=== PATIENT | male | born 1955 | race Caucasian/White ===

== ENCOUNTER → 2017-09-13 | Outpatient (CLI) | payer BC ==
[~2017-09-13] MED LIST: ASA325 PO; NRC7.5T PO
--- NOTE | 2017-09-13 14:50 | Diagnostic Imaging Report ---
TECHNIQUE: Magnetic resonance imaging of the RIGHT humerus was performed WITHOUT injected contrast. Given the requested region of the exam, evaluation in the region of the shoulder and elbow are limited. HISTORY: Weakness COMPARISON: None available. FINDINGS: BONES: No acute fracture. No focal or infiltrative bone marrow replacing abnormality. Subchondral cystic changes and edema at the inferior aspect of the glenoid. JOINTS: Severe degenerative changes of the glenohumeral joint, including severe complex tearing of the inferior labrum with adjacent 1.3 cm paralabral cyst. The humeral head appears high riding with respect to the expected location adjacent to the glenoid. SOFT TISSUES: The long head of the biceps tendon is not visualized within the intertubercular groove. Regional fluid and a retracted tendon stump are visible at the level of the proximal humeral metaphysis. Mild fluid surrounding the biceps muscle. The rotator cuff cannot be well evaluated, but appears attenuated in the region of the supraspinatus and infraspinatus tendons. IMPRESSION: 1. Findings compatible with a proximal rupture and distal retraction of the long head of the biceps tendon. 2. Severe degenerative changes of the glenohumeral joint, including degenerative tearing of the inferior labrum with adjacent paralabral cyst. 3. Suspected high-grade tearing of the supraspinatus and infraspinatus tendons. If warranted, this can be further evaluated via a follow-up MRI of the shoulder without contrast. Signed by: Dr. Abdulkadir Steve D.O., M.M.M. on 09/13/2017 2:46 PM
== END ==
LOC: MRI 09:38
PROVIDERS: ATTEND Family Medicine
DX: M62.81 Muscle weakness (generalized) (principal)

== ENCOUNTER 2018-03-07 14:03 | Emergency (ER) | payer BC ==
[~2018-03-07] VITALS: Ht 170.2 cm; Wt 97.5 kg
[2018-03-07] MEDS ORDERED: LEVOTHYROXINE25 MCG PO (14:36)
[2018-03-07] MEDS ORDERED: XARELTO20 MG PO (14:36)
[2018-03-07 15:08] LABS: BASOPHILS # (AUTO) 0.1 (0.0-0.1); BASOPHILS % 0.9 % (0.0-1.0); EOSINOPHILS # (AUTO) 0.3 (0.0-0.4); EOSINOPHILS % 2.7 % (0.0-6.0); HEMATOCRIT 43.4 % (38.2-49.6); HEMOGLOBIN 14.8 g/dL (14.0-18.0); LYMPHOCYTES % 31.2 % (18.0-39.1); MEAN CORPUSCULAR HEMOGLOBIN 31.9 pg (28-32); MEAN CORPUSCULAR HGB CONC 34.1 g/dL (31-35); MEAN CORPUSCULAR VOLUME 93.5 fL (81-99); MONOCYTES # (AUTO) 0.8 (0.2-0.8); NEUTROPHILS # (AUTO) 5.4 (2.1-6.9); NEUTROPHILS % 56.9 % (38.7-80.0); PLATELET COUNT 267 x10e3/uL (140-360); RED BLOOD COUNT 4.64 x10e6/uL (4.3-5.7); RED CELL DISTRIBUTION WIDTH 12.8 % (11.7-14.4)
[2018-03-07 15:19] LABS: PROTHROMBIN TIME 14.1 seconds (11.9-14.5)
[2018-03-07 15:26] LABS: ALANINE AMINOTRANSFERASE 25 IU/L (0-55); ALBUMIN 3.8 g/dL (3.5-5.0); ALBUMIN/GLOBULIN RATIO 1.1 (0.8-2.0); ALKALINE PHOSPHATASE 47 IU/L (40-150); ANION GAP 14.7 mmol/L (8-16); BLOOD UREA NITROGEN 21 mg/dL (7-26); BUN/CREATININE RATIO 14 (6-25); CALCIUM 9.5 mg/dL (8.4-10.2); CARBON DIOXIDE 22 mmol/L (22-29); CHLORIDE 105 mmol/L (98-107); CREATINE KINASE 131 IU/L (30-200); CREATININE, SERUM 1.49 mg/dL (0.72-1.25); EST GLOMERULAR FILTRATION RATE 47 ML/MIN (60-); GLUCOSE 111 mg/dL (74-118); POTASSIUM 3.7 mmol/L (3.5-5.1); SODIUM 138 mmol/L (136-145)
[2018-03-07] MEDS ORDERED: SODIUM CHLORIDE 0.9% 1000ML 1,000 ML IV SCH ×2 (16:15→18:30)
[2018-03-07] MEDS ORDERED: SODIUM CHLORIDE 0.9% 100 ML 100 ML ONE (16:35)
[2018-03-07] MEDS ORDERED: IOPAMIDOL 370 MG/ML 200 ML INFUS..BTL INJ ONE (16:36)
--- NOTE | 2018-03-07 18:04 | Diagnostic Imaging Report ---
EXAMINATION: CT of the chest with contrast, PE protocol. TECHNIQUE: Spiral CT images of the chest were performed from the lung apices through the level of the adrenal glands after the IV administration of 80 cc of Isovue 370. Thin section reconstructions were obtained with special concentration on the pulmonary arteries. COMPARISON: CT chest 05/10/2017 CLINICAL HISTORY:Shortness of breath, weakness, dizziness DISCUSSION: Exam limited by suboptimal contrast bolus timing. Lungs: No filling defects are identified in the main, right or left pulmonary arteries to their segmental levels to suggest pulmonary embolism. No consolidation, masses or nodules. Subpleural calcified granuloma in the left upper lobe (series 3, image 38). Linear opacities in bilateral lower lobes likely represent subsegmental atelectasis or scarring (for example series 3, image 84). Airways: <The major airways are clear.> Pleura: <There is no evidence of pleural effusion or pneumothorax.> Heart and mediastinum: Thyroid is unremarkable. Heart size is normal. No pericardial effusion. Aorta is nonaneurysmal. Main pulmonary artery is normal in caliber, measuring 2.6 cm. Lymph nodes: No mediastinal, hilar or axillary adenopathy. Abdomen: <The visualized parts of the upper abdomen are unremarkable.> Bones and soft tissues: No aggressive lytic lesions. Multilevel degenerative disc changes in the thoracic spine. IMPRESSION: 1. No CT evidence of pulmonary embolism. 2. Bilateral lower lobe subsegmental atelectasis versus scarring. No consolidation, masses or nodules. Signed by: Dr. Tim Wayne M.D. on 03/07/2018 6:01 PM
--- NOTE | 2018-03-07 18:35 | Diagnostic Imaging Report ---
History: Dizziness Comparison studies: None Technique: Axial images were obtained from the skull base to the vertex. Coronal and sagittal reconstructions obtained from the axial data. Dose modulation, iterative reconstruction, and/or weight based adjustment of the mA/kV was utilized to reduce the radiation dose to as low as reasonably achievable. Findings: Scalp/skull: No abnormalities. No fractures, blastic or lytic lesions. Extra-axial spaces: No masses. No fluid collections. Brain sulci: Appropriate for age. Ventricles: Normal in size and configuration. No hydrocephalus. Parenchyma: No abnormal densities. No masses, hemorrhage, acute or chronic cortical vascular insults. Sellar/suprasellar region: No abnormalities Craniocervical junction: Patent foramen magnum. No Chiari one malformation. Incidental subtle atherosclerotic calcifications in the carotid siphons. IMPRESSION: No intracranial abnormalities. Signed by: Dr. Natanael Acosta M.D. on 03/07/2018 6:32 PM
--- OUTSIDE RECORDS SUMMARY | 2018-03-18 11:11 | XMS REPORT ---
Author Author [facility] Address Unknown Phone Unavailable Care Team Providers Care Assembler [place] Name Role Phone SUDHIRCarlton Unavailable Unavailable RYLEY FLAHERTY Unavailable Unavailable JOHNSON, SOUHEEMMA Unavailable Unavailable Problems This patient has no known problems. Allergies, Adverse Reactions, Alerts This patient has no known allergies or adverse reactions. Medications This patient has no known medications. Results Test Description Test Time Test Comments Text Results Atomic Results Result Comments CT BRAIN WO 2018-03-07 18:31:00 [facility] [address] [place] [address] Patient Name: MARSHAL JACQUES MR #: [id number] : 1955 Age/Sex: 62/M Req #: [id number] Adm Physician: Ordered by: ELIER VOSS METAL BONDING WORKER Report #: [id number] Location: ER Room/Bed: Procedure: [id number] CT/CT BRAIN WO Exam Date: 03/07/18 Exam Time: 1720 REPORT STATUS: Signed History: Dizziness Comparison studies: None Technique: Axial images were obtained from the skull base to the vertex. Coronal and sagittal reconstructions obtained from the axial data. Dose modulation, iterative reconstruction, and/or weight based adjustment of the mA/kV was utilized to reduce the radiation dose to as low as reasonably achievable. Findings: Scalp/skull: No abnormalities. No fractures, blastic or lytic lesions. Extra-axial spaces: No masses. No fluid collections. Brain sulci: Appropriate for age. Ventricles: Normal in size and configuration. No hydrocephalus. Parenchyma: No abnormal densities. No masses, hemorrhage, acute or chronic cortical vascular insults. Sellar/suprasellar region: No abnormalities Craniocervical junction: Patent foramen magnum. No Chiari one malformation. Incidental subtle atherosclerotic calcifications in the carotid siphons. IMPRESSION: No intracranial abnormalities. Signed by: Dr. Natanael Turner M.D. on 03/07/2018 6:32 PM Dictated By: NATANAEL TURNER MD, MD 31 Transcribed By: LÁZARO on 03/07/181831 COPY TO: ELIER VOSS NP CT CHEST W 2018-03-07 17:56:00 [place] [address] Patient Name: MARSHAL JACQUES MR #: [id number] : 1955 Age/Sex: 62/M Req #: [id number] Adm Physician: Ordered by: ELIER VOSS METAL BONDING WORKER Report #: [id number] Location: ER Room/Bed: Procedure: [id number] CT/CT CHEST W Exam Date: 03/07/18 Exam Time: 1720 REPORT STATUS: Signed EXAMINATION: CT of the chest with contrast, PE protocol. TECHNIQUE: Spiral CT images of the chest were performed from the lung apices through the level of the adrenal glands after the IV administration of 80 cc of Isovue 370. Thin section reconstructions were obtained with special concentration on the pulmonary arteries. COMPARISON: CT chest 05/10/2017 CLINICAL HISTORY:Shortness of breath, weakness, dizziness DISCUSSION: Exam limited by suboptimal contrast bolus timing. Lungs: No filling defects are identified in the main, right or left pulmonary arteries to their segmental levels to suggest pulmonary embolism. No consolidation, masses or nodules. Subpleural calcified granuloma in the left upper lobe (series 3, image 38). Linear opacities in bilateral lower lobes likely represent subsegmental atelectasis or scarring (for example series 3, image 84). Airways: <The major airways are clear.> Pleura: <There is no evidence of pleural effusion or pneumothorax.> Heart and mediastinum: Thyroid is unremarkable. Heart size is normal. No pericardial effusion. Aorta is nonaneurysmal. Main pulmonary artery is normal in caliber, measuring 2.6 cm. Lymph nodes: No medi astinal, hilar or axillary adenopathy. Abdomen: <The visualized parts of the upper abdomen are unremarkable.> Bones and soft tissues: No aggressive lytic lesions. Multilevel degenerative disc changes in the thoracic spine. IMPRESSION: 1. No CT evidence of pulmonary embolism. 2. Bilateral lower lobe subsegmental atelectasis versus scarring. No consolidation, masses or nodules. Signed by: Dr. Tim Bolaños M.D. on 03/07/2018 6:01 PM Dictated By: TIM BOLAÑOS MD 00 Transcribed By: LÁZARO on 03/07/181800 COPY TO: ELIER VOSS NP MRI HUMERUS RIGHT WO [place] [address] Patient Name: MARSHAL JACQUES MR #: [id number] : 1955 Age/Sex: 61/M Req #: [id number] Adm Physician: Ordered by: RYLEY FLAHERTY DO Report #: [id number] Location: MRI Room/Bed: Procedure: [id number] MRI/MRI HUMERUS RIGHT WO Exam Date: Exam Time: REPORT STATUS: Signed TECHNIQUE: Magnetic resonance imaging of the RIGHT humerus was performed WITHOUT injected contrast. Given the requested region of the exam, evaluation in the region of the shoulder and elbow are limited. HISTORY: Weakness COMPARISON: None available. FINDINGS: BONES: No acute fracture. No focal or infiltrative bone marrow replacing abnormality. Subchondral cystic changes and edema at the inferior aspect of the glenoid. JOINTS: Severe degenerative changes of the glenohumeral joint, including severe complex tearing of the inferior labrum with adjacent 1.3 cm paralabral cyst. The humeral head appears high riding with respect to the expected location adjacent to the glenoid. SOFT TISSUES: The long head of the biceps tendon is not visualized within the intertubercular groove. Regional fluid and a retracted tendon stump are visible at the level of the proximal humeral metaphysis. Mild fluid surrounding the biceps muscle. The rotator cuff cannot be well evaluated, but appears attenuated in the region of the supraspinatus and infraspinatus tendons. IMPRESSION: 1. Findings compatible with a proximal rupture and distal retraction of the long head of the biceps tendon. 2. Severe degenerative changes of the glenohumeral joint, including degenerative tearing of the inferior labrum with adjacent paralabral cyst. 3. Suspected high-grade tearing of the supraspinatus and infraspinatus tendons. If warranted, this can be further evaluated via a follow-up MRI of the shoulder without contrast. Signed by: Dr. Abdulkadir Razo D.O., M.M.M. on 09/13/2017 2:46 PM Dictated By: ABDULKADIR RAZO DO 1446 Transcribed By: LÁZARO on 09/13/17 1446 COPY TO: RYLEY FLAHERTY DO [facility] (PORTABLE) [place] [address] Patient Name: MARSHAL JACQUES MR #: [id number] : 1955 Age/Sex: 61/M Req #: [id number] Adm Physician: ES JOHNSON MD Ordered by: ADAM CRUZ MD Report #: [id number] Location: ICU Room/Bed: ICU 191-1 Procedure: [id number] DX/CHEST SINGLE (PORTABLE) Exam Date: Exam Time: REPORT STATUS: Signed EXAM: CHEST SINGLE (PORTABLE), AP 1 view DATE: 05/12/2017 5:00 AM Time stamp on exam: 0539 hours INDICATION: DVT lower extremity, PE COMPARISON: AP view of the chest May 11, 2017 FINDINGS: LINES/TUBES: None LUNGS: No consolidations or edema. PLEURA: No effusions or pneumothorax. HEART AND MEDIASTINUM: Normal size and contour. BONES AND SOFT TISSUES: No acute findings. IMPRESSION: No acute thoracic abnormality. Signed by: Dr. Fortino Willson M.D. on 05/12/2017 6:15 AM Dictated By: FORTINO WILLSON MD 4 Transcribed By: LÁZARO on 05/12/17614 COPY TO: ADAM CRUZ MD CHEST SINGLE (PORTABLE) [place] [address] Patient Name: MARSHAL JACQUES MR #: [id number] : 1955 Age/Sex: 61/M Req #: [id number] Adm Physician: ES JOHNSON MD Ordered by: JEFERSON KUHN MD Report #: [id number] Location: ICU Room/Bed: ICU 191- Procedure: [id number] DX/CHEST SINGLE (PORTABLE) Exam Date: 05/11/17 Exam Time: 1436 REPORT STATUS: Signed EXAMINATION: Chest, CHEST SINGLE (PORTABLE) INDICATION: Chest pain COMPARISON: None FINDINGS: LINES: None. Heart: Normal cardiac silhouette. Vascular: The pulmonary vasculature is within normal limits. Atherosclerotic calcifications of the aortic arch. Mediastinum: No mediastinal, hilar, or axillary mass or lymphadenopathy. Lungs: No parenchymal mass. No focal consolidation. Calcified granuloma in the left upper lobe. Pleura: No pleural effusion. No pneumothorax. Bones: No acute osseous abnormality. Degenerative changes of the thoracic spine. Soft tissues: Normal. Impression: No acute radiographic abnormality. Signed by: Dr. Lena Gunter M.D. on 05/11/2017 3:03 PM Dictated By: LENA GUNTER MD 1503 Transcribed By: LÁZARO on 05/11/17 1503 COPY TO: JEFERSON KUHN MD CT CHEST W [place] [address] Patient Name: MARSHAL JACQUES MR #: [id number] : 1955 Age/Sex: 61/M Req #: [id number] Adm Physician: ES JOHNSON MD Ordered by: ES JOHNSON MD Report #: [id number] Location: [facility] Room/Bed: [place] [address] Procedure: [id number] CT/CT CHEST W Exam Date: 05/10/17 Exam Time: 1215 REPORT STATUS: Signed EXAM: CT Chest WITH contrast (PE Protocol) INDICATION: COMPARISON: Chest CT dated 03/05/2017 TECHNIQUE: Chest was scanned utilizing a multidetector helical scanner from the lung apex through the level of the diaphragm after administration of IV contrast. Thin section reconstructions were obtained with special concentration on the pulmonary arteries. Coronal and sagittal reformations were obtained. Pulmonary embolism protocol was performed. IV CONTRAST: 100 mL of Isovue-370 COMPLICATIONS: None RADIATION DOSE: Total DLP: 563.24 mGy*cm Estimated effective dose: (DLP x 0.014 x size factor) mSv CTDIvol has been reviewed. It is below the limits set by the Radiation Protocol Committee (RPC). FINDINGS: LINES/ TUBES: None. LUNGS AND AIRWAYS: Bilateral filling defects, extending from the lobar to segmental pulmonary arteries. Unchanged 6 cm left upper lobe subpleural calcified granuloma. Airways are normal. PLEURA: The pleural spaces are clear. HEART AND MEDIASTINUM: The thyroid gland is normal. No mediastinal, hilar or axillary lymphadenopathy. The heart is normal in size.. There is no pericardial effusion. . Main pulmonary artery measures 3.3 cm in diameter and the ascending aorta measures 3.4 cm. There is flattening of the interventricular septum. UPPER ABDOMEN: Unchanged 1.6 x 1.3 cm left adrenal nodule. Otherwise, unremarkable. BONES: Degenerative changes of thoracic spine. SOFT TISSUES: Unremarkable. IMPRESSION: Extensive bilateral pulmonary embolism. Flattening of the interventricular septum, suggestive of some component of right heart strain. Findings discussed with Dr. Johnson at 1:50 PM, on 05/10/2017. Signed by: Dr. Matt Montes MD on 05/10/2017 1: 52 PM Dictated By: MATT MONTES MD 1352 Transcribed By: LÁZARO on 05/10/17 1352 COPY TO: ES JOHNSON MD [place] [address] Patient Name: MARSHAL JACQUES MR #: [id number] : 1955 Age/Sex: 61/M Req #: [id number] Adm Physician: Ordered by: RYLEY FLAHERTY DO Report #: [id number] Location: US Room/Bed: Procedure: [id number] US/US EXTREMITY SIMMONS NON-VAS Exam Date: 03/18/17 Exam Time: 0835 REPORT STATUS: Signed PROCEDURE: EXTREMITY ULTRASOUND COMPARISON: Patients [facility], MR, MRI LEFT KNEE WO, 04/13/2014, 20:23. INDICATIONS: Left knee mass TECHNIQUE: Baca scale color Doppler ultrasound of the posterior aspect of the left knee FINDINGS: Complex hypo-echoic structure at the posterior aspect of the knee measuring 4.2 x 1 x 1.4 cm. No internal vascularity. Regional soft tissues are otherwise normal. CONCLUSION: Complex structure at the posterior aspect of the knee. When correlated with MRI of the knee from April 2014 this may represent synovitis or increase in size of the multilobular ganglia on noted adjacent to the posterior aspect of the median femoral condyle on that study. It does not have an appearance of a simple Sanchez's cyst. Consider MRI for further characterization. Dictated by: Ara Bautista M.D. on 03/18/2017 at 10:21 Electronically approved by: Ara Bautista M.D. on 03/18/2017 at 10:21 Dictated By: ARA BAUTISTA MD 1021 Transcribed By: MICHELLE on 03/18/17 1021 COPY TO: RYLEY FLAHERTY DO CT ABDOMEN WOW [place] [address] Patient Name: MARSHAL JACQUES MR #: [id number] : 1955 Age/Sex: 61/M Req #: [id number] Adm Physician: Ordered by: RYLEY FLAHERTY DO Report #: [id number] Location: CT Room/Bed: Procedure: [id number] CT/CT ABDOMEN WOW Exam Date: 03/05/17 Exam Time: 1830 REPORT STATUS: Signed PROCEDURE: CT ABDOMEN WITH AND WITHOUT CONTRAST TECHNIQUE: The abdomen was scanned utilizing a multidetector helical scanner from the diaphragm to the iliac crest before and after the IV administration of 70 cc of Isovue 370 and the oral administration of water. Coronal and sagittal multiplanar reformations were obtained. COMPARISON: [facility], CT, CT CHEST WO, 03/05/2017, 14:30. INDICATIONS: Suspect PANCREATIC MASS, abnormal CT chest, history of single kidney FINDINGS: LOWER THORAX: Please see CT chest performed same date for further detail. HEPATOBILIARY: Mild hepatomegaly, measuring 17.3 cm in the right mid clavicular line. Normal contour. No focal lesions. No focal hepatic lesions. No biliary ductal dilatation. Gallbladder is unremarkable. SPLEEN: No splen omegaly. PANCREAS: No ductal dilation or focal lesion. Specifically, the previously described contour abnormality on CT chest 03/05/2017 shows identical density to the rest of the pancreas in all phases of the study and represents normal pancreatic parenchyma. ADRENALS: 1.6 x 1.1 cm benign, lipid rich left adrenal adenoma, previously characterized on CT chest. Right adrenal gland is normal. KIDNEYS: Solitary right kidney, which shows normal enhancement, without stones, solid or cystic masses or hydronephrosis. PERITONEUM / RETROPERITONEUM: No free air or fluid. LYMPH NODES: No lymphadenopathy. VESSELS: Celiac trunk, superior and inferior mesenteric, and bilateral renal arteries are patent. Portal, superior mesenteric, and splenic veins are patent. GI TRACT: Visualized portions of the bowel show no distention or wall thickening. BONES AND SOFT TISSUES: No acute bony abnormalities. Multilevel degenerative disc disease in the lower thoracic and lumbosacral spine. IMPRESSION: 1. previously described pancreatic contour abnormality on CT chest performed same date represents normal pancreatic parenchyma. No ductal dilation or focal lesion is identified. 2. Mild hepatomegaly. No focal lesions. 3. 1.6 cm benign, lipid rich left adrenal adenoma. No further diagnostic imaging is indicated. Tim Bolaños M.D. Dictated by: Tim Bolaños M.D. on 03/05/2017 at 19:35 Electronically approved by: Tim Bolaños M.D. on 03/05/2017 at 19:35 Dictated By: TIM BOLAÑOS MD 34 Transcribed By: MICHELLE on 03/05/171934 COPY TO: RYLEY FLAHERTY DO CT CHEST WO [place] [address] Patient Name: MARSHAL JACQUES MR #: [id number] : 1955 Age/Sex: 61/M Req #: [id number] Adm Physician: Ordered by: RYLEY FLAHERTY DO Report #: [id number] Location: CT Room/Bed: Procedure: [id number] CT/CT CHEST WO Exam Date: 03/05/17 Exam Time: 1430 REPORT STATUS: Signed PROCEDURE: CT CHEST WITHOUT CONTRAST CT scan of the chest WITHOUT intravenous contrast, using standard protocol. TECHNIQUE: The chest was scanned utilizing a multidetector helical scanner from the apex to the level of the adrenal glands. No IV contrast was administered per physician's request. Coronal and sagittal multiplanar reformations were obtained. COMPARISON: None. INDICATIONS: PNEUMONIA, LEUKOCYTOSIS FINDINGS: Lines/tubes: None. Lungs and Airways: 5 mm subpleural calcified granuloma in the left upper lobe (series 3, image 38). Linear scarring with associated calcification in the lateral left lower lobe adjacent to the major fissure (series 3, image 79). No pulmonary nodules, masses, or consolidation. Linear opacities in the posterior (series 3, image 100) and lateral right lower lobe (series 3, image 94), consistent with scarring and/or atelectasis, secondary to eventration of the right hemidiaphragm. Mild bronchiectatic changes in the medial aspect of the right middle lobe (series 3, image 82), associated with linear scarring, likely sequela of prior infection. Airways are clear, without endobronchial lesions. Pleura: No effusion, or pneumothorax. Heart and mediastinum: Thyroid is unremarkable. Heart size is normal. Trace pericardial fluid. Minimal atherosclerotic calcification of the LAD. Aorta is non-aneurysmal. The main pulmonary artery is normal in caliber, measuring 2.9 cm. Lymph nodes: No mediastinal, hilar, or axillary adenopathy Abdomen: Limited views of the upper abdomen show no abnormality within the visualized liver, spleen, or kidneys. Contour abnormality in the posterior aspect of the pancreatic body (series 2 image 129). 1.6 x 1.1 cm low density lesion in the left adrenal gland (series 2, image 125), which measures less than 10 HU. Bones: No acute bony abnormalities. Degenerative disc changes in the thoracic spine. Soft tissues are grossly unremarkable. 1.8 cm right posterior diaphragmatic fat-containing hernia (sagittal image 23). IMPRESSION: 1. No pulmonary nodules, masses, or consolidation. 2. Linear scarring in the lateral and posterior right lower lobe secondary to eventration of the right hemidiaphragm. 3. Mild bronchiectatic changes in the medial aspect of the right middle lobe, likely the sequela of prior infection or inflammation. 4. 1.6 cm hypodense lesion in the left adrenal gland, consistent with a benign, lipid rich adenoma. No further diagnostic imaging is indicated. 5. Contour abnormality in the posterior aspect of the pancreatic body, which is indeterminate, and cannot be further evaluated given the lack of intravenous contrast. This may represent adjacent bowel, however, a pancreatic lesion is also considered. Recommend CT abdomen with pancreas mass protocol for further evaluation. 6. Findings discussed with Xena Garcia PA-C March 05, 2017 at 1550 hrs. Tim Bolaños M.D. Dictated by: Tim Bolaños M.D. on 03/05/2017 at 15:59 Electronically approved by: Tim Bolaños M.D. on 03/05/2017 at 15:59 Dictated By: TIM BOLAÑOS MD 58 Transcribed By: MICHELLE on 03/05/171558 COPY TO: RYLEY FLAHERTY DO
--- OUTSIDE RECORDS SUMMARY | 2018-03-18 11:11 | XMS REPORT | Clinical Summary ---
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 Disp. Refills Start End Date Status Date rivaroxaban (XARELTO) 20 Take 20 mg by mouth 05/03/20 Active mg tablet daily. 17 levothyroxine (SYNTHROID, Take 100 mcg by mouth 01/06/20 Active LEVOXYL) 100 mcg tablet daily. 18 Active Problems Problem Noted Date Kidney donor 12/20/2015 Kidney living donor evaluation, pre-op 12/12/2015 Encounters Date Type Specialty Care Team Description 03/07/2018 Hospital Transplant Candelario Rojas MD Kidney donor Encounter 03/07/2018 [facility] Transplant Lina Frederick MD Kidney donor; Encounter Encounter for donation of kidney 02/18/2018 Documentation Transplant Pattie Low RN Two Year TIEDI - LATE 02/17/2018 Documentation Transplant Pattie Low RN Donor Cancelled his TIEDI Appt 01/15/2018 Orders Only Transplant Pattie Low RN Kidney donor (Primary Dx); Encounter for donation of kidney 01/15/2018 Documentation Transplant Emily Torres Kidney Follow-up (TIEDI update) after 03/06/2017 Family History Medical History Relation Name Comments No Known Problems Father Hypertension Mother Relation Name Status Comments Father (Age 72) Mother (Age 85) Social History Tobacco Use Types Packs/Day Years Used Date Former Smoker Cigarettes Quit: 12/19/2005 Comments: quit 10 yrs ago Alcohol Use Drinks/Week oz/Week Comments No Sex Assigned at Date Recorded Not on file Last Filed Vital Signs Vital Sign Reading Time Taken Blood Pressure 125/76 03/07/2018 9:45 AM CDT Pulse 83 03/07/2018 9:45 AM CDT Temperature 35.9 C (96.7 F) 03/07/2018 9:44 AM CDT Respiratory Rate 18 03/07/2018 9:45 AM CDT Oxygen Saturation 97% 03/07/2018 9:45 AM CDT Inhaled Oxygen - - Concentration Weight 101 kg (222 lb 6.4 oz) 03/07/2018 9:44 AM CDT Height 170.2 cm (5' 7") 03/07/2018 9:44 AM CDT Body Mass Index 34.83 03/07/2018 9:44 AM CDT Plan of Treatment Health Maintenance Due Date Last Done Comments COLON CANCER SCREENING 11/22/2003 SHINGRIX VACCINE (#1) 11/22/2003 ZOSTER VACCINE 2013 INFLUENZA VACCINE 01/01/2018 Procedures Procedure Name Priority Date/Time Associated Diagnosis Comments ESTIMATED GFR Routine 03/07/2018 Results for this 9:40 AM CDT procedure are in the results section. HC COMPLETE BLD COUNT Routine 03/07/2018 Encounter for donation of Results for this W/AUTO DIFF 9:40 AM CDT kidney procedure are in the results section. URINALYSIS, AUTOMATED Routine 03/07/2018 Encounter for donation of Results for this WITH MICROSCOPY 9:40 AM CDT kidney procedure are in the results section. COMPREHENSIVE METABOLIC Routine 03/07/2018 Encounter for donation of Results for this PANEL 9:40 AM CDT kidney procedure are in the results section. LIPID PANEL Routine 03/07/2018 Kidney donor Results for this 9:40 AM CDT procedure are in the results section. after 03/06/2017 Results * Estimated GFR (03/07/2018 9:40 AM) Estimated GFR 50 (A) mL/min/1.73 m2 [facility] DEPARTMENT OF Comment: PATHOLOGY AND CatergoryUnitsInte GENOMIC MEDICINE rpretation G1 >=90 Normal or high G2 60-89Mildly decreased O3q50-18 Mildly to moderately decreased N6x42-70 Moderately to severely decreased G4 15-29Severely decreased G5 <15Kidney failure The eGFR was calculated using the Chronic Kidney Disease Epidemiology Collaboration (CKD-EPI) equation. Interpretation is based on recommendations of the National Kidney Foundation-Kidney Disease Outcomes Quality Initiative (NKF-KDOQI) published in 2014. Specimen Plasma specimen Performing Organization Address City/[facility]/[place] [address] PATHOLOGY AND GENOMIC MEDICINE * Urinalysis, automated with microscopy (03/07/2018 9:40 AM) Color, UA Straw [facility] DE[facility] OF PATHOLOGY AND GENOMIC MEDICINE Appearance, UA Clear [facility] OF PATHOLOGY AND GENOMIC MEDICINE Specific gravity, UA 1.008 1.001 - 1.035 [facility] OF PATHOLOGY AND GENOMIC MEDICINE pH, UA 6.0 5.0 - 8.5 [facility] OF PATHOLOGY AND GENOMIC MEDICINE Protein, UA Negative Negative [facility] OF PATHOLOGY AND GENOMIC MEDICINE Glucose, UA Negative Negative [facility] OF PATHOLOGY AND GENOMIC MEDICINE Ketones, UA Negative Negative [facility] OF PATHOLOGY AND GENOMIC MEDICINE Bilirubin, UA Negative Negative [facility] OF PATHOLOGY AND GENOMIC MEDICINE Blood, UA Negative Negative [facility] OF PATHOLOGY AND GENOMIC MEDICINE Nitrite, UA Negative Negative [facility] OF PATHOLOGY AND GENOMIC MEDICINE Urobilinogen, UA <2.0 <2.0 [facility] OF PATHOLOGY AND GENOMIC MEDICINE Leukocyte esterase, UA Negative Negative [facility] OF PATHOLOGY AND GENOMIC MEDICINE WBC, UA <1 0 - 1 /HPF [facility] OF PATHOLOGY AND GENOMIC MEDICINE RBC, UA None seen 0 - 5 /HPF [facility] OF PATHOLOGY AND GENOMIC MEDICINE Bacteria, UA None seen None seen [facility] OF PATHOLOGY AND GENOMIC MEDICINE Yeast, UA None seen [facility] OF PATHOLOGY AND GENOMIC MEDICINE Yeast with pseudohyphae, None seen [facility] OF PATHOLOGY AND GENOMIC MEDICINE Specimen Urine Performing Organization Address City/[facility]/Zipcode Phone Number [place] [phone] PATHOLOGY AND GENOMIC MEDICINE * CBC with platelet and differential (03/07/2018 9:40 AM) WBC 9.23 4.50 - 11.00 k/uL [facility] DE[facility] OF PATHOLOGY AND GENOMIC MEDICINE RBC 4.94 4.40 - 6.00 m/uL [facility] OF PATHOLOGY AND GENOMIC MEDICINE HGB 15.2 14.0 - 18.0 g/dL [facility] OF PATHOLOGY AND GENOMIC MEDICINE HCT 46.7 41.0 - 51.0 % [facility] DE[facility] OF PATHOLOGY AND GENOMIC MEDICINE MCV 94.5 82.0 - 100.0 fL [facility] OF PATHOLOGY AND GENOMIC MEDICINE MCH 30.8 27.0 - 34.0 pg [facility] DE[facility] OF PATHOLOGY AND GENOMIC MEDICINE MCHC 32.5 31.0 - 37.0 g/dL [facility] OF PATHOLOGY AND GENOMIC MEDICINE RDW - SD 44.5 37.0 - 55.0 fL [facility] OF PATHOLOGY AND GENOMIC MEDICINE MPV 10.8 8.8 - 13.2 fL [facility] OF PATHOLOGY AND GENOMIC MEDICINE Platelet count 263 150 - 400 k/uL [facility] OF PATHOLOGY AND GENOMIC MEDICINE Nucleated RBC 0.00 /100 WBC [facility] OF PATHOLOGY AND GENOMIC MEDICINE Neutrophils 42.4 39.0 - 69.0 % [facility] OF PATHOLOGY AND GENOMIC MEDICINE Lymphocytes 43.6 25.0 - 45.0 % [facility] OF PATHOLOGY AND GENOMIC MEDICINE Monocytes 8.8 0.0 - 10.0 % [facility] OF PATHOLOGY AND GENOMIC MEDICINE Eosinophils 3.9 0.0 - 5.0 % [facility] OF PATHOLOGY AND GENOMIC MEDICINE Basophils 1.1 (H) 0.0 - 1.0 % [facility] OF PATHOLOGY AND GENOMIC MEDICINE Immature granulocytes 0.2Comment: "Immature 0.0 - 1.0 % [facility] DE[facility] OF granulocytes" (promyelocytes, PATHOLOGY AND myelocytes, metamyelocytes) GENOMIC MEDICINE Specimen Blood Performing Organization Address City/State/Zipcode Phone Number [facility] DEPARTMENT OF [address] [place] [address] PATHOLOGY AND GENOMIC MEDICINE * Lipid panel (03/07/2018 9:40 AM) Cholesterol 175 <200 mg/dL [facility] OF PATHOLOGY AND GENOMIC MEDICINE Triglycerides 100 <150 mg/dL [facility] OF PATHOLOGY AND GENOMIC MEDICINE HDL cholesterol 48 >40 mg/dL [facility] OF PATHOLOGY AND GENOMIC MEDICINE LDL cholesterol 120 (H)Comment: Result <100 mg/dL [facility] OF obtained by direct LDL PATHOLOGY AND measurement GENOMIC MEDICINE Lipid panel SeeBelow [facility] DEPARTMENT OF interpretation Comment: PATHOLOGY AND Total Cholesterol GENOMIC MEDICINE (mg/dL) <200 Desirable 200-239Borderline -high >=240High Triglycerides (mg/dL) <150 Normal 150-199Borderline -high 200-499High >=500Very high HDL Cholesterol (mg/dL) <40Low (male) <40Low (female) LDL Cholesterol (mg/dL) <100 Optimal 100-129Near or above optimal 130-159Borderline -high 160-189High >=190Very high Risk Catergories that modify LDL goals. Risk Catergories LDL goal (mg/dL) CHD and CHD risk equivalent<100 (10-year risk >20%) Multiple (2+) risk factors <130 (10-year risk=<20%) 0-1 risk factors <160 (<10-year risk) Defining levels of lipids in metabolic syndrome Triglycerides >=150 mg/dL HDL Cholesterol Men <40 mg/dL Women <40 mg/dL Non-HDL cholesterol is a second target for therapy in persons with high triglycerides (>=200 mg/dL) Specimen Plasma specimen Performing Organization Address City/State/Zipcode Phone Number [facility] DE[facility]MENT OF [address] [place] [address] PATHOLOGY AND GENOMIC MEDICINE * Comprehensive metabolic panel (03/07/2018 9:40 AM) Sodium 139 135 - 148 mEq/L [facility] OF PATHOLOGY AND GENOMIC MEDICINE Potassium 4.9 3.5 - 5.0 mEq/L [facility] OF PATHOLOGY AND GENOMIC MEDICINE Chloride 100 98 - 112 mEq/L [facility] OF PATHOLOGY AND GENOMIC MEDICINE CO2 26 24 - 31 mEq/L [facility] PATHOLOGY AND GENOMIC MEDICINE Anion gap 13@ANIO 7 - 15 mEq/L [facility] OF PATHOLOGY AND GENOMIC MEDICINE BUN 20 8 - 23 mg/dL [facility] PATHOLOGY AND GENOMIC MEDICINE Creatinine 1.45 (H) 0.70 - 1.20 mg/dL [facility] OF PATHOLOGY AND GENOMIC MEDICINE Glucose 87 65 - 99 mg/dL [facility] OF PATHOLOGY AND GENOMIC MEDICINE Calcium 9.0 8.8 - 10.2 mg/dL [facility] OF PATHOLOGY AND GENOMIC MEDICINE Protein 7.3 6.3 - 8.3 g/dL [facility] DE[facility]MENT OF Comment: PATHOLOGY AND GENOMIC MEDICINE 4.6-7.0 g/dL 1 week 4.4-7.6 g/dL 7 months-1year 5.1-7.3 g/dL 1-2 years5.6-7 .5 g/dL >3 years6.0-8 .0 g/dL 18-150 6.3-8.3 g/dL Albumin 3.7 3.5 - 5.0 g/dL [facility] OF PATHOLOGY AND GENOMIC MEDICINE A/G ratio 1.0 0.7 - 3.8 [facility] OF PATHOLOGY AND GENOMIC MEDICINE Alkaline phosphatase 44 40 - 129 U/L [facility] OF PATHOLOGY AND GENOMIC MEDICINE AST 25 10 - 50 U/L [facility] OF PATHOLOGY AND GENOMIC MEDICINE ALT 26 5 - 50 U/L [facility] OF PATHOLOGY AND GENOMIC MEDICINE Total bilirubin 0.5 0.0 - 1.2 mg/dL [facility] OF PATHOLOGY AND GENOMIC MEDICINE Specimen Plasma specimen Performing Organization Address City/State/Zipcode Phone Number [facility] [address] [address] PATHOLOGY AND GENOMIC MEDICINE after 03/06/2017 Insurance Payer Benefit Subscriber ID Type Phone Address Plan / Group MEDICARE MEDICARE [id number] Medicare [place] PART A AND B AETNA AETNA O xxxxxxxxxx Transplant POS TRANSPLANT MARCO ANTONIO LEW JR. Personal/F Self 1955 Home: [address] [place] [address]
== END 2018-03-07 19:15 | disposition home or self-care (01) ==
LOC: ER 14:03
DX: R06.09 Other forms of dyspnea (principal); R42 Dizziness and giddiness; E07.9 Disorder of thyroid, unspecified; Z86.718 Personal history of other venous thrombosis and embolism; Z86.711 Personal history of pulmonary embolism
CPT/HCPCS: 36415; 70450; 71260; 80053; 82550; 82553; 83880; 84484; 85025; 85610; 85730; 93005; 99284; J7030; Q9967

== ENCOUNTER → 2019-04-02 | Day surgery (SDC) | payer BC ==
[2019-03-27 11:07] LABS: BASOPHILS # (AUTO) 0.1 (0.0-0.1); EOSINOPHILS # (AUTO) 0.4 (0.0-0.4); EOSINOPHILS % 5.4 % (0.0-6.0); HEMATOCRIT 44.8 % (38.2-49.6); HEMOGLOBIN 14.7 g/dL (14.0-18.0); LYMPHOCYTES # (AUTO) 2.8 (1.0-3.2); LYMPHOCYTES % 35.9 % (18.0-39.1); MEAN CORPUSCULAR HEMOGLOBIN 31.3 pg (28-32); MEAN CORPUSCULAR HGB CONC 32.8 g/dL (31-35); MEAN CORPUSCULAR VOLUME 95.5 fL (81-99); MONOCYTES # (AUTO) 0.8 (0.2-0.8); MONOCYTES % 10.3 % (4.4-11.3); NEUTROPHILS # (AUTO) 3.6 (2.1-6.9); PLATELET COUNT 238 x10e3/uL (140-360); RED BLOOD COUNT 4.69 x10e6/uL (4.3-5.7); RED CELL DISTRIBUTION WIDTH 12.8 % (11.7-14.4)
[~2019-04-02] MED LIST changes: +FENTANYL CITRATE/PF 100MCG/2 ML INJ ONE; +HYOSCYAMINE 0.125 MG TAB ONE; +LEVOTHYROXINE25 MCG PO; +MIDAZOLAM HCL 2 MG/2 ML VIAL ONE; +PROPOFOL IV EMULSION 10 MG/ML 50 ML VIAL ONE; +XARELTO20 MG PO
[2019-04-02 16:05] VITALS: BP 96/56
[2019-04-02 16:32] LABS: ALBUMIN 3.7 g/dL (3.5-5.0); ALBUMIN/GLOBULIN RATIO 1.1 (0.8-2.0); ANION GAP 12.7 mmol/L (8-16); CALCIUM 8.9 mg/dL (8.4-10.2); CREATININE, SERUM 1.56 mg/dL (0.72-1.25); POTASSIUM 3.7 mmol/L (3.5-5.1)
--- NOTE | 2019-04-02 23:22 | Operative Report ---
DATE OF PROCEDURE: 04/02/2019 SURGEON: Jay Johnson MD PROCEDURE: EGD with biopsies and a colonoscopy with polypectomy. MEDICATIONS: The patient was done under MAC, please see anesthesiologist's note. INDICATIONS FOR EGD: History of melena. INDICATIONS FOR COLONOSCOPY: Surveillance colonoscopy, personal history of colon polyps. PROCEDURE IN DETAIL: With the patient in left lateral decubitus position, a flexible fiberoptic Olympus gastroscope was introduced into the esophagus under direct visualization without any difficulty. GE junction appeared nodular and friable and biopsies were obtained. The scope was then advanced with ease into the stomach. Mucosa overlying the antrum and the body revealed some patchy erythema and low-grade to moderate edema and biopsies were obtained, sent to stain for H. pylori. Pylorus was of normal contour and shape, it was intubated with ease and the scope was advanced all the way to the second portion of the duodenum. The scope was then withdrawn slowly. Mucosa overlying the proximal second portion appeared to be within normal limits. The mucosa overlying the duodenal bulb revealed some patchy areas of intense erythema. The scope was then withdrawn back into the stomach and retroflexed and mucosa overlying the fundus and cardia appeared to be within normal limits. The scope was then straightened out and it was subsequently withdrawn. The patient tolerated procedure well. IMPRESSION: 1. Distal esophagitis. 2. Prominent esophageal veins versus early esophageal varices. 3. GE junction nodular, and friable, biopsied. 4. Gastritis, biopsied, biopsies sent to stain for H. pylori. 5. Bulbar duodenitis. PLAN: Follow up histology. Initiate Protonix 40 mg one p.o. q.a.m. a.c. The patient will need a repeat EGD in 6-8 weeks on therapy to re-evaluate the GE junction. The patient was then turned around after adequate lubrication of the anal canal. A flexible fiberoptic Olympus colonoscope was inserted into the rectum with ease and advanced all the way to the cecum. The scope was then withdrawn slowly, mucosa overlying the cecum, ascending colon and transverse colon appeared to be within normal limits. An approximately 8 mm sessile polyp was removed per snare electrocautery from the descending colon. Diverticular disease was noted to involve the distal descending and the sigmoid colon. The rectum appeared to be within normal limits. The scope was then retroflexed into the distal rectum and moderate-sized internal hemorrhoids were noted, none of which was actively bleeding. There were some also early rectal varices noted. The scope was then straightened out and it was subsequently withdrawn. The patient tolerated procedure well. IMPRESSION: 1. Descending colon polyp, removed per snare electrocautery. 2. Diverticulosis. 3. Small rectal varices. 4. Internal hemorrhoids, none actively bleeding. PLAN: Followup histology. Initiate high-fiber, low-fat diet. Initiate high-fiber supplement. The patient might benefit from a followup colonoscopy in 3 to 5 years. Jay Johnson MD [facility]/MODL /[id number] cc: MD Gaviota Jara MD
== END | disposition home or self-care (01) ==
LOC: OR 13:05
PROVIDERS: ATTEND Internal Medicine Gastroenterology
DX: K29.70 Gastritis, unspecified, without bleeding (principal); D12.4 Benign neoplasm of descending colon; K29.80 Duodenitis without bleeding; K21.0 Gastro-esophageal reflux disease with esophagitis; K22.8 Other specified diseases of esophagus; K57.30 Diverticulosis of large intestine without perforation or abscess without bleeding; I86.8 Varicose veins of other specified sites; K64.8 Other hemorrhoids; J45.909 Unspecified asthma, uncomplicated; G47.33 Obstructive sleep apnea (adult) (pediatric); E03.9 Hypothyroidism, unspecified; R03.0 Elevated blood-pressure reading, without diagnosis of hypertension; Z88.0 Allergy status to penicillin; Z01.812 Encounter for preprocedural laboratory examination; Z79.02 Long term (current) use of antithrombotics/antiplatelets; Z68.36 Body mass index [BMI] 36.0-36.9, adult; Z86.711 Personal history of pulmonary embolism; Z87.891 Personal history of nicotine dependence
CPT/HCPCS: 36415 ×2; 43239; 45385; 80053; 85025; J2250; J2704; J3010; 45378; 45384

== ENCOUNTER → 2019-04-22 | Outpatient (CLI) | payer BC ==
[~2019-04-22] MED LIST changes: -FENTANYL CITRATE/PF 100MCG/2 ML INJ ONE; -HYOSCYAMINE 0.125 MG TAB ONE; -MIDAZOLAM HCL 2 MG/2 ML VIAL ONE; -PROPOFOL IV EMULSION 10 MG/ML 50 ML VIAL ONE
--- NOTE | 2019-04-22 11:29 | Diagnostic Imaging Report ---
EXAM: US ABDOMEN COMPLETE DATE: 04/22/2019 9:46 AM INDICATION: Hepatic cirrhosis COMPARISON: None TECHNIQUE: Transverse and longitudinal galvan scale and color doppler sonographic images of the upper abdomen were obtained. FINDINGS: There is no evidence of fluid or masses seen in the area of clinical concern in the right lower quadrant. LIVER 19.0 cm in the right midclavicular line. Mildly increased echogenicity of the liver with normal contour, no masses. SPLEEN 10.4 cm in maximum diameter. Normal echogenicity, no masses. GALLBLADDER No gallbladder wall thickening, distension, stone, or pericholecystic fluid. NEgative reported sonographic Brennan's sign. Gallbladder wall measures 2 mm. BILE DUCTS No intra nor extra-hepatic biliary dilation. Common bile duct measures 2 mm PANCREAS: Visualized portions are normal. RIGHT KIDNEY: 11.8 cm Echogenicity: Normal Collecting System: No hydronephrosis Stones: None Cyst/Mass: None LEFT KIDNEY: Left kidney absent. VESSELS: Aorta: Visualized portions are within normal size limits Inferior Vena Cava: Visualized portions are normal Main Portal Vein: 1.2 cm, normal size with hepatopetal flow. FREE FLUID: None IMPRESSION: Hepatomegaly and mild hepatic steatosis. No cholelithiasis or sonographic evidence of cholecystitis. Status post left nephrectomy. No hydronephrosis or renal calculi on the right. Signed by: Harley Tovar MD on 04/22/2019 11:25 AM
== END ==
LOC: US 09:37
PROVIDERS: ATTEND Internal Medicine Gastroenterology
DX: K74.60 Unspecified cirrhosis of liver (principal)
CPT/HCPCS: 76700

== ENCOUNTER → 2019-05-18 | Day surgery (SDC) | payer BC ==
[~2019-05-18] MED LIST changes: +FENTANYL CITRATE/PF 100MCG/2 ML INJ ONE; +MIDAZOLAM HCL 2 MG/2 ML VIAL ONE; +PROPOFOL IV EMULSION 10 MG/ML 50 ML VIAL ONE
[2019-05-18 08:02] LABS: BASOPHILS # (AUTO) 0.1 (0.0-0.1); BASOPHILS % 1.1 % (0.0-1.0); EOSINOPHILS # (AUTO) 0.4 (0.0-0.4); EOSINOPHILS % 4.4 % (0.0-6.0); HEMATOCRIT 45.1 % (38.2-49.6); HEMOGLOBIN 14.9 g/dL (14.0-18.0); LYMPHOCYTES # (AUTO) 3.2 (1.0-3.2); LYMPHOCYTES % 37.9 % (18.0-39.1); MONOCYTES # (AUTO) 0.8 (0.2-0.8); MONOCYTES % 9.7 % (4.4-11.3); NEUTROPHILS # (AUTO) 3.9 (2.1-6.9); NEUTROPHILS % 46.7 % (38.7-80.0); PLATELET COUNT 224 x10e3/uL (140-360); RED CELL DISTRIBUTION WIDTH 12.6 % (11.7-14.4)
[2019-05-18 08:21] LABS: INR 0.85; PARTIAL THROMBOPLASTIN TIME 25.4 seconds (23.8-35.5); PROTHROMBIN TIME 12.1 seconds (11.9-14.5)
[2019-05-18 10:50] VITALS: BP 133/86
[2019-05-18 11:23] LABS: ALBUMIN 3.4 g/dL (3.5-5.0); ANION GAP 14.1 mmol/L (8-16); CALCIUM 9.2 mg/dL (8.4-10.2); CREATININE, SERUM 1.27 mg/dL (0.72-1.25); POTASSIUM 4.1 mmol/L (3.5-5.1)
--- NOTE | 2019-05-20 05:23 | Operative Report ---
DATE OF PROCEDURE: SURGEON: Jay Johnson MD PROCEDURE: Esophagogastroduodenoscopy with biopsies. INDICATIONS FOR EGD: History of nodular, friable GE junction. MEDICATIONS: The patient was done under MAC, please see anesthesiologist's note. PROCEDURE IN DETAIL: With the patient in left lateral decubitus position, a flexible fiberoptic Olympus gastroscope was introduced into the esophagus under direct visualization without any difficulty. An erosion was noted in the distal esophagus. The GE junction looked less friable, but still somewhat nodular. Multiple biopsies were obtained. The scope was then advanced with ease into the stomach. Mucosa overlying the antrum and the body revealed some patchy erythema. Pylorus was of normal contour and shape, it was intubated with ease and the scope was advanced all the way to the second portion of the duodenum. Biopsies were obtained from the proximal second portion and duodenal bulb to rule out sprue. A minute ulcer was noted in the duodenal bulb without active bleeding or stigmata of recent hemorrhage. The scope was then withdrawn back into the stomach and retroflexed. Mucosa overlying the fundus and cardia appeared to be within normal limits. The scope was then straightened out, it was subsequently withdrawn. The patient tolerated procedure well. IMPRESSION: 1. Erosive esophagitis. 2. GE junction, less friable still somewhat nodular. Multiple biopsies obtained. 3. Gastritis, mild. 4. Duodenal ulcer, bulb, minute, without active bleeding. 5. Rule out sprue. PLAN: Follow up histology. Continue Protonix 40 mg one p.o. q.a.m. a.c. The patient will need a repeat EGD if biopsies were unremarkable in 6 to 12 months. Jay Johnson MD [facility] [place] /[id number] cc: Hebert Phillips DO
== END | disposition home or self-care (01) ==
LOC: ENDO 07:12
PROVIDERS: ATTEND Internal Medicine Gastroenterology
DX: K22.10 Ulcer of esophagus without bleeding (principal); K22.70 Barrett's esophagus without dysplasia; K21.0 Gastro-esophageal reflux disease with esophagitis; K26.9 Duodenal ulcer, unspecified as acute or chronic, without hemorrhage or perforation; H91.90 Unspecified hearing loss, unspecified ear; R42 Dizziness and giddiness; J45.909 Unspecified asthma, uncomplicated; G47.33 Obstructive sleep apnea (adult) (pediatric); E03.9 Hypothyroidism, unspecified; K76.0 Fatty (change of) liver, not elsewhere classified; Z88.0 Allergy status to penicillin; Z90.5 Acquired absence of kidney; Z86.711 Personal history of pulmonary embolism; Z86.718 Personal history of other venous thrombosis and embolism; Z87.891 Personal history of nicotine dependence
CPT/HCPCS: 36415; 43239; 80053; 85025; 85610; 85730; 93005; J2250; J2704; J3010

== ENCOUNTER → 2019-09-21 | Outpatient (CLI) | payer BC ==
[~2019-09-21] MED LIST changes: -FENTANYL CITRATE/PF 100MCG/2 ML INJ ONE; +IOPAMIDOL 370 MG/ML 200 ML INFUS..BTL INJ ONE; -MIDAZOLAM HCL 2 MG/2 ML VIAL ONE; -PROPOFOL IV EMULSION 10 MG/ML 50 ML VIAL ONE; +SODIUM CHLORIDE 0.9% 250ML 250 ML ONE; +SODIUM CHLORIDE 0.9% 500ML 500 ML ONE; +SODIUM CHLORIDE 0.9% 50ML 50 ML ONE
[2019-09-21 12:12] LABS: CREATININE, SERUM 1.43 mg/dL (0.72-1.25)
--- NOTE | 2019-09-21 14:35 | Diagnostic Imaging Report ---
EXAM: CT Chest WITH contrast- Pulmonary Embolism Protocol INDICATION: Shortness of breath, deep venous thrombosis COMPARISON: Chest CT 03/07/2018 TECHNIQUE: Chest was scanned utilizing a multidetector helical scanner from the lung apex through the level of the diaphragm after administration of IV contrast. Thin section reconstructions were obtained with special concentration on the pulmonary arteries. Coronal and sagittal reformations were obtained. Pulmonary embolism protocol was performed. IV CONTRAST: 100 cc of Isovue 370 RADIATION DOSE: Total DLP: 664 mGy*cm Dose modulation, iterative reconstruction, and/or weight based adjustment of the mA/kV was utilized to reduce the radiation dose to as low as reasonably achievable. COMPLICATIONS: None FINDINGS: LINES/ TUBES: None. PULMONARY ARTERIES: No filling defect is identified within the pulmonary arteries to the segmental level. The subsegmental pulmonary arteries are not well opacified. Main pulmonary artery measures 2.5 cm in diameter. LUNGS AND AIRWAYS: The central airways are patent. No evidence of pneumonia or pulmonary edema. Minimal dependent atelectasis. Subcentimeter left upper lobe calcified granuloma. PLEURA: The pleural spaces are clear. HEART AND MEDIASTINUM: The thyroid gland is normal. No mediastinal, hilar or axillary lymphadenopathy. The heart is normal in size.. There is no pericardial effusion. No right heart strain.. UPPER ABDOMEN: No acute findings. BONES: No acute osseous injury. No suspicious lytic or blastic lesions. SOFT TISSUES: Unremarkable. IMPRESSION: No pulmonary embolism. No focal pneumonia or pulmonary edema. Signed by: Harley Tovar MD on 09/21/2019 2:31 PM
== END ==
LOC: CT 11:00
PROVIDERS: ATTEND Internal Medicine Interventional Cardiology
DX: I26.99 Other pulmonary embolism without acute cor pulmonale (principal); R07.9 Chest pain, unspecified; Z86.718 Personal history of other venous thrombosis and embolism
CPT/HCPCS: 36415; 71260; 82565; 84520; J7040; J7050; Q9967

== ENCOUNTER → 2020-04-13 | Outpatient (CLI) | payer BC ==
[~2020-04-13] MED LIST changes: -IOPAMIDOL 370 MG/ML 200 ML INFUS..BTL INJ ONE; -SODIUM CHLORIDE 0.9% 250ML 250 ML ONE; -SODIUM CHLORIDE 0.9% 500ML 500 ML ONE; -SODIUM CHLORIDE 0.9% 50ML 50 ML ONE
--- NOTE | 2020-04-14 09:03 | Diagnostic Imaging Report ---
EXAM: CT Chest WITHOUT intravenous contrast 04/13/2020 5:50 PM INDICATION: ^[id number] ^[id number] ^LUNG NODULE COMPARISON: 09/21/2019 and 03/07/2018 TECHNIQUE: Chest was scanned utilizing a multidetector helical scanner from the lung apex through the level of the adrenal glands without administration of IV contrast. Coronal and sagittal reformations were obtained. Routine protocol was performed. IV CONTRAST: None RADIATION DOSE: Total DLP: 279 mGy*cm. Dose modulation, iterative reconstruction, and/or weight based adjustment of the mA/kV was utilized to reduce the radiation dose to as low as reasonably achievable. COMPLICATIONS: None FINDINGS: LINES/ TUBES: None. LUNGS AND AIRWAYS: Large airways are patent. Negative for focal consolidation. Stable linear scarring at the lung bases. No suspicious pulmonary nodule or mass is identified. Stable left upper lobe subpleural calcified granuloma. PLEURA: The pleural spaces are clear. HEART AND MEDIASTINUM: The thyroid gland is normal. No mediastinal, hilar or axillary lymphadenopathy. The heart is normal in size.. There is no pericardial effusion. Thoracic aorta is of normal caliber without significant atherosclerotic change. UPPER ABDOMEN: Postsurgical changes from left nephrectomy are noted. BONES: Negative for acute osseous abnormality. Moderate to severe multilevel degenerative changes of the spine are stable. No suspicious destructive lesion is identified. Mild degenerative changes of the shoulder joints are noted. SOFT TISSUES: Unremarkable. IMPRESSION: 1. No suspicious pulmonary nodule or mass is identified. 2. Lungs are clear. Signed by: Alexandru Butler MD on 04/14/2020 9:00 AM
== END ==
LOC: CT 17:38
PROVIDERS: ATTEND Family Medicine
DX: R91.1 Solitary pulmonary nodule (principal)
CPT/HCPCS: 71250

== ENCOUNTER → 2020-10-28 | Outpatient (CLI) | payer MEDICARE, BC | LOC: US 10:48 | PROVIDERS: ATTEND Family Medicine | DX: R10.33 Periumbilical pain (principal) | CPT/HCPCS: 76700; 76856 ==

== ENCOUNTER → 2020-11-15 | Outpatient (CLI) | payer MEDICARE, BC ==
[~2020-11-15] MED LIST changes: +IOPAMIDOL 370 MG/ML 200 ML INFUS..BTL INJ ONE; +SODIUM CHLORIDE 0.9% 50ML 50 ML ONE
== END ==
LOC: CT 16:46
PROVIDERS: ATTEND Family Medicine
DX: M79.605 Pain in left leg (principal); R79.1 Abnormal coagulation profile; R06.02 Shortness of breath; Z86.718 Personal history of other venous thrombosis and embolism; Z86.711 Personal history of pulmonary embolism
CPT/HCPCS: 71260; 93971; Q9967

== ENCOUNTER 2021-02-28 05:47 | Observation (INO) | payer MEDICARE, BC ==
[2021-02-24 12:21] LABS: BASOPHILS # (AUTO) 0.1 (0.0-0.1); EOSINOPHILS # (AUTO) 0.4 (0.0-0.4); EOSINOPHILS % 3.7 % (0.0-6.0); HEMATOCRIT 46.7 % (38.2-49.6); HEMOGLOBIN 15.4 g/dL (14.0-18.0); LYMPHOCYTES # (AUTO) 3.7 (1.0-3.2); LYMPHOCYTES % 35.6 % (18.0-39.1); MEAN CORPUSCULAR VOLUME 96.9 fL (81-99); MONOCYTES # (AUTO) 0.9 (0.2-0.8); MONOCYTES % 8.5 % (4.4-11.3); NEUTROPHILS # (AUTO) 5.3 (2.1-6.9); NEUTROPHILS % 50.7 % (38.7-80.0); PLATELET COUNT 238 x10e3/uL (140-360); RED BLOOD COUNT 4.82 x10e6/uL (4.3-5.7); RED CELL DISTRIBUTION WIDTH 13.2 % (11.7-14.4)
[~2021-02-28] VITALS: Ht 170.2 cm; Wt 102.1 kg
[~2021-02-28 05:47] MED LIST changes: +ASPIRIN81 MG PO; -IOPAMIDOL 370 MG/ML 200 ML INFUS..BTL INJ ONE; -SODIUM CHLORIDE 0.9% 50ML 50 ML ONE; +VITAMIN D310 MCG PO
[2021-02-28] MEDS ORDERED: Vancomycin IV 1 GM VIAL ONE (06:00)
[2021-02-28] MEDS ORDERED: GABAPENTIN 300 MG CAP ONE (06:00)
[2021-02-28] MEDS ORDERED: DEXAMETHASONE SOD PHOS 10 MG/1 ML VIAL ONE (06:00)
[2021-02-28] MEDS ORDERED: CELECOXIB 200 MG CAP ONE (06:00)
[2021-02-28] MEDS ORDERED: SODIUM CHLORIDE 0.9% 250ML 250 ML ONE (06:00)
[2021-02-28] MEDS ORDERED: SODIUM CHLORIDE 0.9% 500ML 500 ML ONE (06:34)
[2021-02-28] MEDS ORDERED: Vancomycin IV 1,000 MG ONE (06:34)
[2021-02-28] MEDS ORDERED: TRANEXAMIC ACID 1,000 MG/10 ML ML ONE (06:35)
[2021-02-28] MEDS ORDERED: ROPIVACAINE 246.25 MG, EPINEPHRINE HCL 1:1000 1ML 0.5 MG, CLONIDINE HCL 0.08 MG, KETORO... INJ ONE ×5 (08:00)
[2021-02-28] MEDS ORDERED: Vancomycin IV 1 GM in SODIUM CHLORIDE 0.9% 250ML 250 ML IV SCH ×2 (08:45→18:00)
[2021-02-28] MEDS ORDERED: HYDROCODONE/APAP 5MG-325MG TAB PO PRN (08:45)
[2021-02-28] MEDS ORDERED: DIPHENHYDRAMINE HCL INJ 50 MG/ML VIAL IV PRN (08:45)
[2021-02-28] MEDS ORDERED: ONDANSETRON HCL INJ 2MG/ML 2ML 2 MG/ML VIAL IV PRN (08:45)
[2021-02-28] MEDS ORDERED: KETOROLAC TROMETHAMINE 30 MG/ML VIAL IV PRN (08:45)
[2021-02-28] MEDS ORDERED: HYDROCODONE/APAP 7.5MG-325MG 1 EA TAB PO PRN (08:45)
[2021-02-28] MEDS ORDERED: ACETAMINOPHEN 650 MG SUPP PR PRN (08:45)
[2021-02-28] MEDS ORDERED: SODIUM CHLORIDE 0.9% 1000ML 1,000 ML IV SCH (08:45)
[2021-02-28] MEDS ORDERED: DOCUSATE SODIUM 100 MG CAP PO PRN (08:45)
[2021-02-28] MEDS ORDERED: HYDROMORPHONE 2MG/ML 2 MG/ML ML ONE (09:14)
[2021-02-28 09:41] VITALS: BP 109/66
[2021-02-28 09:42] VITALS: BP 109/66
[2021-02-28 09:45] VITALS: BP 109/66
[2021-02-28] MEDS: ASPIRIN 325 MG TAB PO SCH ×2 (10:29→15:51)
[2021-02-28 15:13] VITALS: BP 109/61
[2021-02-28] MEDS ORDERED: CELECOXIB 200 MG CAP PO SCH (17:00)
[2021-02-28] MEDS ORDERED: ZOLPIDEM TARTRATE 5 MG TAB PO PRN (21:00)
[2021-03-01] MEDS ORDERED: ACETAMINOPHEN 1000 MG/100 ML IV PRN (08:45)
== END 2021-02-28 18:00 | disposition home or self-care (01) ==
LOC: OR 05:47 → PACU V 08:37 → MED/SURG 09:28
PROVIDERS: ADMIT Specialist; ATTEND Specialist
DX: M17.0 Bilateral primary osteoarthritis of knee (principal); J45.909 Unspecified asthma, uncomplicated; Z86.711 Personal history of pulmonary embolism; G47.33 Obstructive sleep apnea (adult) (pediatric); E03.9 Hypothyroidism, unspecified; Z20.822 Contact with and (suspected) exposure to COVID-19
CPT/HCPCS: 27447; 36415; 71046; 73560; 85025; 86850; 86900; 86920; 97110; 97116; 97162; C1713 ×4; C1776; G0378; J0171; J1100; J1170; J1885; J2405; J2795; J3370 ×2; J7030; J7040; J7050; U0002

== ENCOUNTER → 2021-04-13 | Outpatient (CLI) | payer MEDICARE, BC | LOC: MRI 08:52 | PROVIDERS: ATTEND Family Medicine | DX: S49.92XA Unspecified injury of left shoulder and upper arm, initial encounter (principal) ==

== ENCOUNTER → 2021-06-19 | Outpatient (CLI) | payer MEDICARE, BC ==
[~2021-06-19] MED LIST changes: +DIATRIZOATE MEGL/DIATRIZOA SOD 30 ML BTL PO ONE; +IOPAMIDOL 370 MG/ML 200 ML INFUS..BTL INJ ONE; +SODIUM CHLORIDE 0.9% 50ML 0 ML ONE
[2021-06-19 13:20] LABS: CREATININE, SERUM 1.45 mg/dL (0.72-1.25)
== END ==
LOC: CT 12:42
PROVIDERS: ATTEND Family Medicine
DX: K57.92 Diverticulitis of intestine, part unspecified, without perforation or abscess without bleeding (principal)
CPT/HCPCS: 36415; 74176; 82565; 84520; Q9967

== ENCOUNTER → 2021-07-07 | Outpatient (CLI) | payer MEDICARE, BC ==
[~2021-07-07] MED LIST changes: -DIATRIZOATE MEGL/DIATRIZOA SOD 30 ML BTL PO ONE; -IOPAMIDOL 370 MG/ML 200 ML INFUS..BTL INJ ONE; -SODIUM CHLORIDE 0.9% 50ML 0 ML ONE
== END ==
LOC: NM 13:27
PROVIDERS: ATTEND Internal Medicine Gastroenterology
DX: K80.20 Calculus of gallbladder without cholecystitis without obstruction (principal)
CPT/HCPCS: 78227; A9537

== ENCOUNTER → 2021-08-30 | Day surgery (SDC) | payer MEDICARE, BC ==
[2021-08-28 13:12] LABS: BASOPHILS # (AUTO) 0.1 (0.0-0.1); BASOPHILS % 0.9 % (0.0-1.0); EOSINOPHILS # (AUTO) 0.3 (0.0-0.4); EOSINOPHILS % 3.8 % (0.0-6.0); LYMPHOCYTES # (AUTO) 3.5 (1.0-3.2); LYMPHOCYTES % 40.8 % (18.0-39.1); MEAN CORPUSCULAR HEMOGLOBIN 30.7 pg (28-32); MEAN CORPUSCULAR HGB CONC 32.6 g/dL (31-35); MEAN CORPUSCULAR VOLUME 94.3 fL (81-99); MONOCYTES # (AUTO) 0.7 (0.2-0.8); MONOCYTES % 8.7 % (4.4-11.3); NEUTROPHILS # (AUTO) 3.8 (2.1-6.9); NEUTROPHILS % 45.2 % (38.7-80.0); PLATELET COUNT 260 x10e3/uL (140-360); RED BLOOD COUNT 4.88 x10e6/uL (4.3-5.7); RED CELL DISTRIBUTION WIDTH 14.1 % (11.7-14.4)
[~2021-08-30] MED LIST changes: +HYOSCYAMINE SULFATE 0.5 MG/ML INJ ONE; +LIDOCAINE HCL 2% LOCAL INJ 5 ML SDV VIAL INJ ONE; +PROPOFOL IV EMULSION 10 MG/ML 20 ML VIAL ONE
[2021-08-30 14:21] VITALS: BP 110/81
== END | disposition home or self-care (01) ==
LOC: OR 09:47
PROVIDERS: ATTEND Internal Medicine Gastroenterology
DX: Z09 Encounter for follow-up examination after completed treatment for conditions other than malignant neoplasm (principal); Z86.010 Personal history of colon polyps; K57.92 Diverticulitis of intestine, part unspecified, without perforation or abscess without bleeding; K64.8 Other hemorrhoids; I25.10 Atherosclerotic heart disease of native coronary artery without angina pectoris; E03.9 Hypothyroidism, unspecified; M54.9 Dorsalgia, unspecified; H91.90 Unspecified hearing loss, unspecified ear; E66.9 Obesity, unspecified; Z88.0 Allergy status to penicillin; Z01.810 Encounter for preprocedural cardiovascular examination; Z01.812 Encounter for preprocedural laboratory examination; Z20.822 Contact with and (suspected) exposure to COVID-19; Z79.82 Long term (current) use of aspirin; Z79.899 Other long term (current) drug therapy; Z68.36 Body mass index [BMI] 36.0-36.9, adult; Z90.5 Acquired absence of kidney; Z86.711 Personal history of pulmonary embolism
CPT/HCPCS: 36415; 45378; 85025; 93005; J1980; J2001; J2704; U0002

== ENCOUNTER 2022-03-22 12:43 | Inpatient (IN) | payer MEDICARE, BC ==
[~2022-03-22] VITALS: Ht 170.2 cm; Wt 105.5 kg
[~2022-03-22 12:43] MED LIST changes: -IOPAMIDOL 370 MG/ML 100 ML INFUS..BTL INJ ONE; -SODIUM CHLORIDE 0.9% 500ML 500 ML ONE; -XARELTO15 MG PO
[2022-03-22 13:19] LABS: BASOPHILS # (AUTO) 0.1 (0.0-0.1); BASOPHILS % 0.8 % (0.0-1.0); EOSINOPHILS # (AUTO) 0.4 (0.0-0.4); EOSINOPHILS % 3.8 % (0.0-6.0); HEMATOCRIT 45.2 % (38.2-49.6); HEMOGLOBIN 13.9 g/dL (14.0-18.0); LYMPHOCYTES # (AUTO) 3.7 (1.0-3.2); LYMPHOCYTES % 32.3 % (18.0-39.1); MEAN CORPUSCULAR HEMOGLOBIN 29.9 pg (28-32); MEAN CORPUSCULAR HGB CONC 30.8 g/dL (31-35); MEAN CORPUSCULAR VOLUME 97.2 fL (81-99); MONOCYTES # (AUTO) 1.1 (0.2-0.8); MONOCYTES % 9.2 % (4.4-11.3); NEUTROPHILS # (AUTO) 6.2 (2.1-6.9); NEUTROPHILS % 53.6 % (38.7-80.0); PLATELET COUNT 232 x10e3/uL (140-360); RED BLOOD COUNT 4.65 x10e6/uL (4.3-5.7); RED CELL DISTRIBUTION WIDTH 13.6 % (11.7-14.4)
[2022-03-22] MEDS: ENOXAPARIN SODIUM INJ 100 MG/ML SYR SC SCH ×2 (13:19→23:00)
[2022-03-22] MEDS ORDERED: ASPIRIN 81 MG CHEW TAB PO ONE (13:30)
[2022-03-22] MEDS ORDERED: ONDANSETRON HCL INJ 2MG/ML 2ML 2 MG/ML VIAL IV PRN (13:30)
[2022-03-22] MEDS ORDERED: SODIUM CHLORIDE FLUSH 10 ML SYR INJ PRN (13:30)
[2022-03-22 13:32] LABS: INR 0.93; PROTHROMBIN TIME 13.3 seconds (11.9-14.5)
[2022-03-22 13:33] LABS: PARTIAL THROMBOPLASTIN TIME 26.9 seconds (23.8-35.5)
[2022-03-22 13:39] LABS: ALBUMIN 3.9 g/dL (3.5-5.0); ANION GAP 15.1 mmol/L (8-16); CALCIUM 8.7 mg/dL (8.4-10.2); CREATININE, SERUM 1.31 mg/dL (0.72-1.25); POTASSIUM 4.1 mmol/L (3.5-5.1)
[2022-03-22 15:00] LABS: CREATINE KINASE 151 IU/L (30-200)
[2022-03-22 19:30] VITALS: BP_SYST 119; BP_SYST 141; BP_DIAS 71; BP_DIAS 72
[2022-03-23] VITALS: BP 110/71
[2022-03-23 04:00] VITALS: BP 116/68
[2022-03-23 05:51] LABS: BASOPHILS # (AUTO) 0.1 (0.0-0.1); BASOPHILS % 1.1 % (0.0-1.0); EOSINOPHILS # (AUTO) 0.5 (0.0-0.4); EOSINOPHILS % 6.4 % (0.0-6.0); HEMATOCRIT 43.5 % (38.2-49.6); HEMOGLOBIN 13.6 g/dL (14.0-18.0); LYMPHOCYTES # (AUTO) 2.7 (1.0-3.2); LYMPHOCYTES % 33.1 % (18.0-39.1); MEAN CORPUSCULAR HEMOGLOBIN 30.3 pg (28-32); MEAN CORPUSCULAR HGB CONC 31.3 g/dL (31-35); MEAN CORPUSCULAR VOLUME 96.9 fL (81-99); MONOCYTES % 11.9 % (4.4-11.3); NEUTROPHILS # (AUTO) 3.9 (2.1-6.9); NEUTROPHILS % 47.1 % (38.7-80.0); PLATELET COUNT 235 x10e3/uL (140-360); RED BLOOD COUNT 4.49 x10e6/uL (4.3-5.7); RED CELL DISTRIBUTION WIDTH 13.5 % (11.7-14.4)
[2022-03-23] MEDS ORDERED: LEVOTHYROXINE SODIUM 25 MCG TABLET PO SCH (06:00)
[2022-03-23 06:10] LABS: ANION GAP 15.2 mmol/L (8-16); CALCIUM 8.4 mg/dL (8.4-10.2); CREATININE, SERUM 1.2 mg/dL (0.72-1.25); POTASSIUM 4.2 mmol/L (3.5-5.1)
[2022-03-23 06:39] LABS: CREATINE KINASE MB 2.7 ng/mL (0-5.0)
[2022-03-23 07:54] VITALS: BP 120/76
[2022-03-23] MEDS ORDERED: ASPIRIN 81 MG CHEW TAB PO SCH (09:00)
[2022-03-23] MEDS: ENOXAPARIN SODIUM INJ 100 MG/ML SYR SC SCH (09:00)
[2022-03-23 09:04] VITALS: BP 120/76
[2022-03-23 11:43] VITALS: BP 126/70
[2022-03-23 15:25] LABS: CREATINE KINASE MB 2.5 ng/mL (0-5.0)
[2022-03-23 15:32] VITALS: BP 130/70
[2022-03-23] MEDS ORDERED: XARELTO20 MG PO (15:56)
[2022-03-23] MEDS ORDERED: XARELTO15 MG PO (15:56)
[2022-03-23] MEDS ORDERED: ONDANSETRON HCL 4 MG ORAL DISINTEGRATING TAB PO PRN (16:30)
[2022-03-23] MEDS ORDERED: RIVAROXABAN 15 MG TABLET PO SCH (17:00)
[2022-04-14] MEDS ORDERED: RIVAROXABAN 20 MG TABLET PO SCH (09:00)
== END 2022-03-23 17:17 | disposition home or self-care (01) | DRG 299 ==
LOC: ER 12:50 → ERHOLD 13:21 → MED/SURG2 19:30
PROVIDERS: ADMIT Internal Medicine; ATTEND Internal Medicine
DX: I82.411 Acute embolism and thrombosis of right femoral vein (principal); I26.99 Other pulmonary embolism without acute cor pulmonale; I82.431 Acute embolism and thrombosis of right popliteal vein; E03.9 Hypothyroidism, unspecified; G47.33 Obstructive sleep apnea (adult) (pediatric); Z88.0 Allergy status to penicillin; Z20.822 Contact with and (suspected) exposure to COVID-19; Z86.718 Personal history of other venous thrombosis and embolism; Z86.711 Personal history of pulmonary embolism; E66.9 Obesity, unspecified; Z86.16 Personal history of COVID-19; D64.9 Anemia, unspecified; Z90.5 Acquired absence of kidney; Z87.891 Personal history of nicotine dependence; Z68.36 Body mass index [BMI] 36.0-36.9, adult
CPT/HCPCS: 0223U; 36415; 80048; 80053; 82550; 82553; 84484; 85025; 85303; 85306; 85610; 85651; 85730; 86039; 86140; 93005; 94660; 94799; 99284; J1650

== ENCOUNTER → 2022-03-22 | Outpatient (CLI) | payer MEDICARE, BC ==
[~2022-03-22] MED LIST changes: -HYOSCYAMINE SULFATE 0.5 MG/ML INJ ONE; +IOPAMIDOL 370 MG/ML 100 ML INFUS..BTL INJ ONE; -LIDOCAINE HCL 2% LOCAL INJ 5 ML SDV VIAL INJ ONE; -PROPOFOL IV EMULSION 10 MG/ML 20 ML VIAL ONE; +SODIUM CHLORIDE 0.9% 500ML 500 ML ONE; +XARELTO15 MG PO
[2022-03-22 11:37] LABS: CREATININE, SERUM 1.35 mg/dL (0.72-1.25)
== END ==
LOC: RAD 10:40
PROVIDERS: ATTEND Family Medicine
DX: R06.02 Shortness of breath (principal); R22.41 Localized swelling, mass and lump, right lower limb; Z91.89 Other specified personal risk factors, not elsewhere classified; Z86.718 Personal history of other venous thrombosis and embolism
CPT/HCPCS: 36415; 71260; 82565; 84520; 93971; 96360; J7040; Q9967

== ENCOUNTER → 2024-06-15 | Outpatient (REF) | payer MEDICARE, BC ==
[~2024-06-15] MED LIST changes: +IOPAMIDOL 370 MG/ML 100 ML INFUS..BTL INJ ONE; +SODIUM CHLORIDE 0.9% 100 ML ONE; +XARELTO15 MG PO
[2024-06-15 10:45] LABS: CREATININE, SERUM 1.17 mg/dL (0.72-1.25)
== END ==
LOC: CT 09:44
PROVIDERS: ATTEND Family Medicine
DX: Z95.828 Presence of other vascular implants and grafts (principal)
CPT/HCPCS: 36415; 74174; 82565; 84520; J7050; Q9967

== ENCOUNTER → 2024-06-30 | Outpatient (REF) | payer MEDICARE, BC ==
[~2024-06-30] MED LIST changes: -IOPAMIDOL 370 MG/ML 100 ML INFUS..BTL INJ ONE; -SODIUM CHLORIDE 0.9% 100 ML ONE
== END ==
LOC: RAD 11:18
PROVIDERS: ATTEND Family Medicine
DX: Z18.9 Retained foreign body fragments, unspecified material (principal)
CPT/HCPCS: 74021